=== PATIENT | male | born 1985 | race Hispanic/Latino ===

== ENCOUNTER 2016-09-05 13:13 | Emergency (ER) | payer OTHER ==
--- NOTE | 2016-09-05 14:40 | REP ---
Chest x-ray: Two views. History: Xiphoid area pain. . Comparison study: No comparison study . Findings: The lungs are well inflated and free of infiltrate. The pleural angles are sharp. The heart size is normal. Pulmonary vasculature is not increased. No significant bony abnormality is seen. No sternal or xyphoid abnormality. Impression: Negative chest x-ray. Signed by Devin Matt MD 09/05/2016 02:31 P
--- NOTE | 2016-09-05 14:57 | EDDOCDS ---
Physician Documentation [facility] Name: Dixon Wilkerson Age: 31 yrs Sex: Male : 1985 Arrival Date: 09/05/2016 Time: 13:13 Bed PD Private MD: ANKIT Askew Disposition: 09/05/16 14:52 Discharged to Home/Self Care. Impression: Other chest pain - xyphoid, Strain of muscle and tendon of back wall of thorax. - Condition is Stable. - Discharge Instructions: Thoracic Strain, [id number]. - Prescriptions for Diclofenac Sodium 75 mg Oral Tablet, Delayed Release (E.C.) - take 1 tablet by ORAL route 2 times per day; 30 tablet. - Medication Reconciliation, Local Pharmacy Hours form. - Follow up: ANKIT Askew; When: 1 - 2 days; Reason: Further diagnostic work-up, Recheck today's complaints, Continuance of care. - Problem is new. - Symptoms have improved. Historical: - Allergies: Zithromax (Rash, Vomit); - Home Meds: 1. none - PMHx: none; - PSHx: Hernia repair- Umbilical; - Social history: Smoking status: Patient states was never smoker of tobacco. No barriers to communication noted, Speaks appropriately for age. - Family history: Not pertinent. - : The pt / caregiver states he / she is not on anticoagulants. Home medication list is obtained from the patient. - Exposure Risk Screening:: None identified. Vital Signs: 09/05 13:14 BP 149 / 91; Pulse 72; Resp 18; Pulse Ox 100% on R/A; Weight 72.57 kg / 159.99 lbs (R); elp Height 5 ft. 5 in. (165.10 cm) (R); Pain 1/10; 14:53 BP 126 / 91; Pulse 94; Resp 18; Temp 98.0; Pulse Ox 99% ; Pain 1/10; jam1 13:14 Body Mass Index 26.63 (72.57 kg, 165.10 cm) elp MDM: 14:23 Chest, 2 View (pa\E\lat) Ordered. EDMS 14:25 Financial registration complete. lg Signatures: Dispatcher [employer] EDMS Dudley Toledo, Reg Reg lg Jose Rodrigues, RN RN ml6 Ganesh Justice PA PA btw Lu Koenig,RN RN js13 MTDD
--- NOTE | 2016-09-05 14:57 | EDDOCDS ---
Nurse's Notes [facility] Name: Dixon Wilkerson Age: 31 yrs Sex: Male : 1985 Arrival Date: 09/05/2016 Time: 13:13 Bed PD Private MD: ANKIT Askew Diagnosis: Other chest pain-xyphoid;Strain of muscle and tendon of back wall of thorax Presentation: 09/05 13:18 Presenting complaint: Patient states: states epigastric pain radiating to back x 2 ml6 days. Risk factors: the patient reports not having a history of previous torsion. Adult Sepsis Screening: The patient does not have new or worsening altered mentation. Patient's respiratory rate is less than 22. Systolic blood pressure is greater than 100. Patient has a qSOFA score of 0- Negative Sepsis Screen. Suicide/Homicide risk assessment- the patient denies having any suicidal and/or homicidal ideations and does not present with any other emotional, behavioral or mental health complaints. 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 Transition of care: patient was not received from another setting of care. 13:18 Acuity: FELICIA Level 3 ml6 13:18 Method Of Arrival: Walkin/Carried/Asstd ml6 Triage Assessment: 13:19 General: Appears in no apparent distress, Behavior is appropriate for age, cooperative. ml6 Pain: Location: epigastric area Pain currently is 1 out of 10 on a pain scale. Pain does not radiate. Quality of pain is described as aching, Pain began 2-3 days ago Is continuous. HIV screening NA for this visit Offered previously. Neurological: No deficits noted. Cardiovascular: No deficits noted. Capillary refill < 3 seconds is brisk in bilateral fingers toes. GI: Abdomen is flat, non- distended Bowel sounds present X 4 quads. Abd is soft and non tender X 4 quads. Denies diarrhea, nausea, vomiting, pain. Historical: - Allergies: Zithromax (Rash, Vomit); - Home Meds: 1. none - PMHx: none; - PSHx: Hernia repair- Umbilical; - Social history: Smoking status: Patient states was never smoker of tobacco. No barriers to communication noted, Speaks appropriately for age. - Family history: Not pertinent. - : The pt / caregiver states he / she is not on anticoagulants. Home medication list is obtained from the patient. - Exposure Risk Screening:: None identified. Screenin:56 Screening information is obtained from the patient. Fall risk: No risks identified. js13 Assistance ADL's: requires no assistance with activities of daily living. Abuse/DV Screen: The patient / caregiver reports he/she is: not in a situation that causes fear, pain or injury. Nutritional screening: No deficits noted. Advance Directives: There is no active DNR order. home support is adequate. Assessment: 14:53 General: Appears in no apparent distress, comfortable. Pain: Denies pain. Neurological: js13 Level of Consciousness is awake, alert. Respiratory: No deficits noted. Airway is patent Respiratory effort is even, unlabored, Respiratory pattern is regular, symmetrical. GI: Abdomen is non- distended. Derm: Skin is pink, warm & dry. Vital Signs: 13:14 BP 149 / 91; Pulse 72; Resp 18; Pulse Ox 100% on R/A; Weight 72.57 kg (R); Height 5 ft. elp 5 in. (165.10 cm) (R); Pain 1/10; 14:53 BP 126 / 91; Pulse 94; Resp 18; Temp 98.0; Pulse Ox 99% ; Pain 1/10; jam1 13:14 Body Mass Index 26.63 (72.57 kg, 165.10 cm) [facility] Vitals: 13:14 Log In Time: September 05, 2016 at 13:12. [facility] ED Course: 13:14 Patient visited by Mitra Browning PCA. elp 13:14 MARICEL Askew is Private Physician. elp 13:14 Patient moved to Waiting elp 13:15 Patient visited by Mitra Browning PCA. elp 13:16 Patient moved to Pre RCE elp 13:18 Triage Initiated ml6 13:51 Patient moved to Triage 2 ml6 13:56 The patient / caregiver is instructed regarding the plan of care and ED course. js13 14:12 Ganesh Justice PA is PHCP. btw 14:12 Karen Johnson MD is Attending Physician. btw 14:12 Patient visited by Ganesh Justice PA. btw 14:23 Patient moved to TR4 js13 14:51 ANKIT Askew is Referral Physician. btw 14:51 Patient moved to PD2 / 27 ml6 14:53 No IV's were initiated during this patient's visit. No procedures done that require js13 assistance. Order Results: There are currently no results for this order. Outcome: 14:52 Discharge ordered by Provider. btw 14:54 Discharge Assessment: Patient awake, alert and oriented x 3. No cognitive and/or js13 functional deficits noted. Patient verbalized understanding of disposition instructions. patient administered narcotics - no. The following High Risk Discharge criteria are identified: None. Discharged to home ambulatory. Condition: stable. Discharge instructions given to patient, Instructed on discharge instructions, follow up and referral plans. medication usage, Demonstrated understanding of instructions, medications, Pt was receptive of discharge instructions/ teaching. Prescriptions given X 1. No special radiology studies were completed. Property :Personal belongings accompany Pt. 14:56 Patient left the ED. js13 Signatures: Giselle Gómez, PRESCHOOL TEACHER PRESCHOOL TEACHER jam1 Jose Rodrigues, RN RN ml6 Ganesh Justice PA PA btw Lu KoenigRN RN js13 Mitra Browning, PRESCHOOL TEACHER PRESCHOOL TEACHER elp [facility]
--- NOTE | 2016-09-07 15:57 | EDDOCDS ---
Nurse's Notes [facility] Name: Dixon Wilkerson Age: 31 yrs Sex: Male : 1985 Arrival Date: 09/05/2016 Time: 13:13 Bed PD Private MD: ANKIT Askew Diagnosis: Other chest pain-xyphoid;Strain of muscle and tendon of back wall of thorax Presentation: 09/05 13:18 Presenting complaint: Patient states: states epigastric pain radiating to back x 2 ml6 days. Risk factors: the patient reports not having a history of previous torsion. Adult Sepsis Screening: The patient does not have new or worsening altered mentation. Patient's respiratory rate is less than 22. Systolic blood pressure is greater than 100. Patient has a qSOFA score of 0- Negative Sepsis Screen. Suicide/Homicide risk assessment- the patient denies having any suicidal and/or homicidal ideations and does not present with any other emotional, behavioral or mental health complaints. 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 Transition of care: patient was not received from another setting of care. 13:18 Acuity: FELICIA Level 3 ml6 13:18 Method Of Arrival: Walkin/Carried/Asstd ml6 Triage Assessment: 13:19 General: Appears in no apparent distress, Behavior is appropriate for age, cooperative. ml6 Pain: Location: epigastric area Pain currently is 1 out of 10 on a pain scale. Pain does not radiate. Quality of pain is described as aching, Pain began 2-3 days ago Is continuous. HIV screening NA for this visit Offered previously. Neurological: No deficits noted. Cardiovascular: No deficits noted. Capillary refill < 3 seconds is brisk in bilateral fingers toes. GI: Abdomen is flat, non- distended Bowel sounds present X 4 quads. Abd is soft and non tender X 4 quads. Denies diarrhea, nausea, vomiting, pain. Historical: - Allergies: Zithromax (Rash, Vomit); - Home Meds: 1. none - PMHx: none; - PSHx: Hernia repair- Umbilical; - Social history: Smoking status: Patient states was never smoker of tobacco. No barriers to communication noted, Speaks appropriately for age. - Family history: Not pertinent. - : The pt / caregiver states he / she is not on anticoagulants. Home medication list is obtained from the patient. - Exposure Risk Screening:: None identified. Screenin:56 Screening information is obtained from the patient. Fall risk: No risks identified. js13 Assistance ADL's: requires no assistance with activities of daily living. Abuse/DV Screen: The patient / caregiver reports he/she is: not in a situation that causes fear, pain or injury. Nutritional screening: No deficits noted. Advance Directives: There is no active DNR order. home support is adequate. Assessment: 14:53 General: Appears in no apparent distress, comfortable. Pain: Denies pain. Neurological: js13 Level of Consciousness is awake, alert. Respiratory: No deficits noted. Airway is patent Respiratory effort is even, unlabored, Respiratory pattern is regular, symmetrical. GI: Abdomen is non- distended. Derm: Skin is pink, warm & dry. Vital Signs: 13:14 BP 149 / 91; Pulse 72; Resp 18; Pulse Ox 100% on R/A; Weight 72.57 kg (R); Height 5 ft. elp 5 in. (165.10 cm) (R); Pain 1/10; 14:53 BP 126 / 91; Pulse 94; Resp 18; Temp 98.0; Pulse Ox 99% ; Pain 1/10; jam1 13:14 Body Mass Index 26.63 (72.57 kg, 165.10 cm) [facility] Vitals: 13:14 Log In Time: September 05, 2016 at 13:12. [facility] ED Course: 13:14 Patient visited by Mitra Browning PCA. elp 13:14 MARICEL Askew is Private Physician. elp 13:14 Patient moved to Waiting elp 13:15 Patient visited by Mitra Browning PCA. elp 13:16 Patient moved to Pre RCE elp 13:18 Triage Initiated ml6 13:51 Patient moved to Triage 2 ml6 13:56 The patient / caregiver is instructed regarding the plan of care and ED course. js13 14:12 Ganesh Justice PA is PHCP. btw 14:12 Karen Johnson MD is Attending Physician. btw 14:12 Patient visited by Ganesh Justice PA. btw 14:23 Patient moved to TR4 js13 14:51 ANKIT Askew is Referral Physician. btw 14:51 Patient moved to PD ml6 14:53 No IV's were initiated during this patient's visit. No procedures done that require js13 assistance. 15:00 Patient name changed from Dixon\S\F\S\Mccroy\S\ to Dixon\S\Elian\S\Mccroy. EDMS 15:02 [facility] Payment Agreement was scanned into [employer] and attached to record. lg 15:12 Chest, 2 View (pa\E\lat) Returned. EDMS 21:22 T-Sheet-- Draft Copy was scanned into [employer] and attached to record. klr Order Results: Radiology Order: Chest, 2 View (pa\E\lat) Test: Chest, 2 View (pa\E\lat) REASON FOR EXAMINATION: xyphoid pain; Chest x-ray: Two views.; ; History: Xiphoid area pain. .; ; Comparison study: No comparison study .; ; Findings: The lungs are well inflated and free of infiltrate. The pleural; angles are sharp. The heart size is normal. Pulmonary vasculature is not; increased. No significant bony abnormality is seen. No sternal or xyphoid; abnormality.; ; Impression:; ; Negative chest x-ray.; ; ; Signed by; Devin Matt MD 09/05/2016 02:31 P; Outcome: 14:52 Discharge ordered by Provider. btw 14:54 Discharge Assessment: Patient awake, alert and oriented x 3. No cognitive and/or js13 functional deficits noted. Patient verbalized understanding of disposition instructions. patient administered narcotics - no. The following High Risk Discharge criteria are identified: None. Discharged to home ambulatory. Condition: stable. Discharge instructions given to patient, Instructed on discharge instructions, follow up and referral plans. medication usage, Demonstrated understanding of instructions, medications, Pt was receptive of discharge instructions/ teaching. Prescriptions given X 1. No special radiology studies were completed. Property :Personal belongings accompany Pt. 14:56 Patient left the ED. js13 Signatures: Dispatcher [employer] EDMS Giselle Gómez, X RAY EQUIPMENT TESTER X RAY EQUIPMENT TESTER jam1 Dudley Toledo, Reg Reg lg Jose Rodrigues RN RN ml6 Ganesh Justice PA PA btw Lu KoenigRN RN js13 Mitra Browning, X RAY EQUIPMENT TESTER X RAY EQUIPMENT TESTER Johanna James Chart Complete MTDD
--- NOTE | 2016-09-07 15:57 | EDDOCDS ---
Physician Documentation [facility] Name: Dixon Wilkerson Age: 31 yrs Sex: Male : 1985 Arrival Date: 09/05/2016 Time: 13:13 Bed PD Private MD: ANKIT Askew Disposition: 09/05/16 14:52 Discharged to Home/Self Care. Impression: Other chest pain - xyphoid, Strain of muscle and tendon of back wall of thorax. - Condition is Stable. - Discharge Instructions: Thoracic Strain, Gebr-ax-Fqmi. - Prescriptions for Diclofenac Sodium 75 mg Oral Tablet, Delayed Release (E.C.) - take 1 tablet by ORAL route 2 times per day; 30 tablet. - Medication Reconciliation, Local Pharmacy Hours form. - Follow up: ANKIT Askew; When: 1 - 2 days; Reason: Further diagnostic work-up, Recheck today's complaints, Continuance of care. - Problem is new. - Symptoms have improved. Historical: - Allergies: Zithromax (Rash, Vomit); - Home Meds: 1. none - PMHx: none; - PSHx: Hernia repair- Umbilical; - Social history: Smoking status: Patient states was never smoker of tobacco. No barriers to communication noted, Speaks appropriately for age. - Family history: Not pertinent. - : The pt / caregiver states he / she is not on anticoagulants. Home medication list is obtained from the patient. - Exposure Risk Screening:: None identified. Vital Signs: 09/05 13:14 BP 149 / 91; Pulse 72; Resp 18; Pulse Ox 100% on R/A; Weight 72.57 kg / 159.99 lbs (R); elp Height 5 ft. 5 in. (165.10 cm) (R); Pain 1/10; 14:53 BP 126 / 91; Pulse 94; Resp 18; Temp 98.0; Pulse Ox 99% ; Pain 1/10; jam1 13:14 Body Mass Index 26.63 (72.57 kg, 165.10 cm) elp MDM: 14:23 Chest, 2 View (pa\E\lat) Ordered. EDMS 14:25 Financial registration complete. lg 15:02 [facility] Payment Agreement was scanned into [employer] and attached to record. lg 21:22 T-Sheet-- Draft Copy was scanned into [employer] and attached to record. klr Signatures: Dispatcher [employer] EDDudley Lunsford, Reg Reg lg Jose Rodrigues RN RN ml6 Ganesh Justcie PA PA btw Sullivan, JenniferRN RN js13 Johanna Shelby klchema The chart was reviewed and I authenticate all verbal orders and agree with the evaluation and treatment provided.Attachments: 15:02 [facility] Payment Agreement lg 21:22 T-Sheet-- Draft Copy klr Chart Complete MTDD
--- NOTE | 2016-09-07 15:58 | EDDOCDS ---
Physician Documentation [facility] Name: Dixon Wilkerson Age: 31 yrs Sex: Male : 1985 Arrival Date: 09/05/2016 Time: 13:13 Bed PD Private MD: ANKIT Askew Disposition: 09/05/16 14:52 Discharged to Home/Self Care. Impression: Other chest pain - xyphoid, Strain of muscle and tendon of back wall of thorax. - Condition is Stable. - Discharge Instructions: Thoracic Strain, Hvat-so-Uvzp. - Prescriptions for Diclofenac Sodium 75 mg Oral Tablet, Delayed Release (E.C.) - take 1 tablet by ORAL route 2 times per day; 30 tablet. - Medication Reconciliation, Local Pharmacy Hours form. - Follow up: ANKIT Askew; When: 1 - 2 days; Reason: Further diagnostic work-up, Recheck today's complaints, Continuance of care. - Problem is new. - Symptoms have improved. Historical: - Allergies: Zithromax (Rash, Vomit); - Home Meds: 1. none - PMHx: none; - PSHx: Hernia repair- Umbilical; - Social history: Smoking status: Patient states was never smoker of tobacco. No barriers to communication noted, Speaks appropriately for age. - Family history: Not pertinent. - : The pt / caregiver states he / she is not on anticoagulants. Home medication list is obtained from the patient. - Exposure Risk Screening:: None identified. Vital Signs: 09/05 13:14 BP 149 / 91; Pulse 72; Resp 18; Pulse Ox 100% on R/A; Weight 72.57 kg / 159.99 lbs (R); elp Height 5 ft. 5 in. (165.10 cm) (R); Pain 1/10; 14:53 BP 126 / 91; Pulse 94; Resp 18; Temp 98.0; Pulse Ox 99% ; Pain 1/10; jam1 13:14 Body Mass Index 26.63 (72.57 kg, 165.10 cm) elp MDM: 14:23 Chest, 2 View (pa\E\lat) Ordered. EDMS 14:25 Financial registration complete. lg 15:02 [facility] Payment Agreement was scanned into [facility] [employer] and attached to record. lg 21:22 T-Sheet-- Draft Copy was scanned into [facility] [employer] and attached to record. klr Signatures: Dispatcher [employer] EDDudley Lunsford, Reg Reg lg Jose Rodrigues RN RN ml6 Ganesh Justice PA PA btw Sullivan, JenniferRN RN js13 Johanna Shelby klchema The chart was reviewed and I authenticate all verbal orders and agree with the evaluation and treatment provided.Attachments: 15:02 [facility] Payment Agreement lg 21:22 T-Sheet-- Draft Copy klr Chart Complete MTDD
== END 2016-09-05 14:56 | disposition home or self-care (01) ==
LOC: M ED 13:13
DX: R07.89 Other chest pain (principal); S29.012A Strain of muscle and tendon of back wall of thorax, initial encounter; X58.XXXA Exposure to other specified factors, initial encounter; Y92.89 Other specified places as the place of occurrence of the external cause; Y93.89 Activity, other specified; Y99.8 Other external cause status; Z88.1 Allergy status to other antibiotic agents

== ENCOUNTER 2017-12-23 11:06 | Day surgery (SDC) | payer OTHER ==
[2017-12-23] MEDS ORDERED: fentaNYL 100 MCG/2 ML INJECTION (J3010) As Ordered (11:38)
[2017-12-23] MEDS ORDERED: PROPOFOL 200 MG/20 ML VIAL As Ordered (11:42)
[2017-12-23] MEDS: NS 1,000 ML IV (12:01)
== END 2017-12-23 13:04 | disposition home or self-care (01) ==
LOC: M OPP 11:06
DX: R10.13 Epigastric pain (principal); R63.4 Abnormal weight loss; K31.89 Other diseases of stomach and duodenum; K26.9 Duodenal ulcer, unspecified as acute or chronic, without hemorrhage or perforation; F90.9 Attention-deficit hyperactivity disorder, unspecified type; Z88.1 Allergy status to other antibiotic agents
CPT/HCPCS: 43239

== ENCOUNTER 2019-05-04 14:37 | Emergency (ER) | payer OTHER ==
[~2019-05-04] VITALS: Ht 165.1 cm; Wt 69.1 kg
--- NOTE | 2019-05-04 16:31 | REP ---
Clinical: Trauma. Laceration. Technique: AP, lateral, bilateral oblique views right foot . Findings: The osseous structures and joint spaces are intact and normal. There is no evidence for acute fracture or dislocation. Surrounding soft tissues are unremarkable. No subcutaneous emphysema or radiodense foreign body. Impression: Normal right foot series . No acute fracture or dislocation. Electronically Signed by Regino Barlow MD 05/04/2019 04:22 P
[2019-05-04] MEDS ORDERED: ADACEL/BOOSTRIX VACCINE (DIPHTH/PERTUSS/ACELL/TETANUS)0.5ML SYR (90715) IM ONE (17:00)
[2019-05-04] MEDS ORDERED: LIDOCAINE 2% W/EPIN INJ 20ML **PRES FREE INJ ONE (17:00)
[2019-05-04 17:07] VITALS: BP 136/85
[2019-05-04] MEDS ORDERED: KEFL500C17 PO (17:32)
[2019-05-04] MEDS ORDERED: NEOSPORIN OINT 0.9 GM PKT (FLOOR STOCK) TOP ONE (17:45)
== END 2019-05-04 18:32 | disposition home or self-care (01) ==
LOC: M ED 14:37
DX: S91.311A Laceration without foreign body, right foot, initial encounter (principal); S90.31XA Contusion of right foot, initial encounter; W26.9XXA Contact with unspecified sharp object(s), initial encounter; Y92.096 Garden or yard of other non-institutional residence as the place of occurrence of the external cause; Y93.89 Activity, other specified; Y99.9 Unspecified external cause status; Z88.1 Allergy status to other antibiotic agents